=== PATIENT | female | born 1990 | race Caucasian/White ===

== ENCOUNTER 2016-11-28 12:25 | Emergency (ER) | payer BC ==
--- NOTE | 2016-11-28 13:46 | ER Document Report ---
HPI - HPI Patient complains to provider of: sacral pain Onset: This morning Onset/Duration: Gradual Quality of pain: Sharp Pain Level: 1 Context: Patient complains of sacral pain that started this morning. Patient denies any injury or trauma. Patient states pain increases whenever she is sitting. Patient reports nausea but denies any vomiting or diarrhea. Patient denies any fever or urinary symptoms. Associated Symptoms: Nausea, Other - Sacral pain. denies: Diarrhea, Fever, Vomiting Exacerbated by: Sitting Relieved by: Denies Similar symptoms previously: Yes - when she had an ectopic Recently seen / treated by doctor: No - ROS ROS below otherwise negative: Yes Systems Reviewed and Negative: Yes All other systems reviewed and negative - CONSTITUTIONAL Constitutional: DENIES: Fever, Chills - NEURO Neurology: DENIES: Weakness - GASTROINTESTINAL Gastrointestinal: REPORTS: Nausea. DENIES: Abdominal Pain, Patient vomiting, Diarrhea - URINARY Urinary: DENIES: Dysuria - REPRODUCTIVE Reproductive: DENIES: : - MUSCULOSKELETAL Musculoskeletal: REPORTS: Back Pain - Sacral pain. DENIES: Extremity pain, Swelling - DERM Skin Color: Normal Skin Problems: None Past Medical History - General Information source: Patient Last Menstrual Period: today - Social History Smoking Status: Never Smoker Frequency of alcohol use: None Drug Abuse: None Occupation: retail Family History: Reviewed & Not Pertinent Patient has suicidal ideation: No Patient has homicidal ideation: No Renal/ Medical History: Reports: Hx Ectopic . Denies: Hx Peritoneal Dialysis Past Surgical History: Reports: Hx Gynecologic Surgery - Left salpingectomy due to ruptured ectopic - Immunizations Hx Diphtheria, Pertussis, Tetanus Vaccination: No Vertical Provider Document - CONSTITUTIONAL Agree With Documented VS: Yes Exam Limitations: No Limitations General Appearance: WD/WN, No Apparent Distress - INFECTION CONTROL TRAVEL OUTSIDE OF THE [place] IN LAST 30 DAYS: No - HEENT HEENT: Atraumatic, Normocephalic - NECK Neck: Normal Inspection, Supple - RESPIRATORY Respiratory: Breath Sounds Normal, No Respiratory Distress - CARDIOVASCULAR Cardiovascular: Regular Rate, Regular Rhythm, No Murmur - GI/ABDOMEN Gastrointestinal: Abdomen Soft, Abdomen Non-Tender - BACK Back: Abnormal Inspection - Patient with sacral tenderness at the superior aspect of gluteal cleft, no erythema, no swelling, tenderness with deep palpation, no visible sinus tract. negative: CVA Tenderness-Right, CVA Tenderness-Left - MUSCULOSKELETAL/EXTREMETIES Musculoskeletal/Extremeties: MAEW, FROM - NEURO Level of Consciousness: Awake, Alert, Appropriate - DERM Integumentary: Warm, Dry, No Rash. negative: Abscess Course - Re-evaluation Re-evalutation: 11/28/16 13:[address] Godfrey who agrees with plan for testing, does not recommend any additional testing or imaging at this time to evaluate patient's source of her sacral pain. Recommends having patient observe the area for possible developing abscess. - Laboratory Laboratory results interpreted by me: 11/28/16 15:31 Labs- Entire Visit 11/28/16 14:35 Urine HCG, Qual NEGATIVE 11/28/16 17:48 Discharge - Discharge Clinical Impression: Sacral pain Condition: Stable Disposition: HOME, SELF-CARE Instructions: Warm Packs ([facility]) Additional Instructions: Return immediately for any new or worsening symptoms Followup with your primary care provider, call tomorrow to make a followup appointment You may use a doughnut pillow to sit on to help with discomfort You have tenderness and in areas that people frequently will get skin infections or abscesses. Check this area frequently and return for any swelling , redness, fever, or increased pain. Prescriptions: Naproxen [Naprosyn 250 Nmg Tablet] 1 tab PO BID #14 tablet Forms: Return to Work Referrals: [facility] [Provider Group] - Follow up as needed [facility] [Provider Group] - Follow up as needed
== END 2016-11-28 16:06 | disposition home or self-care (01) ==
LOC: ER 12:25
DX: M89.8X8 Other specified disorders of bone, other site (principal); R11.0 Nausea
CPT/HCPCS: 81025; 99283